=== PATIENT | female | born 1980 | race Two or more races ===

== ENCOUNTER 2016-11-30 18:41 | Emergency (ER) | payer OTHER ==
[2016-11-30] MEDS ORDERED: CYCLOBENZAPRINE HCL 10 MG TABLET PO ONE (19:48)
[2016-11-30] MEDS ORDERED: IBUPROFEN 800 MG TABLET PO ONE (19:48)
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
[2016-11-30 21:49] VITALS: BP 118/70
== END 2016-11-30 21:49 | disposition home or self-care (01) ==
LOC: ER 18:41
DX: S16.1XXA Strain of muscle, fascia and tendon at neck level, initial encounter (principal); S50.811A Abrasion of right forearm, initial encounter; S80.02XA Contusion of left knee, initial encounter; S49.91XA Unspecified injury of right shoulder and upper arm, initial encounter; M25.511 Pain in right shoulder; V87.7XXA Person injured in collision between other specified motor vehicles (traffic), initial encounter; M54.2 Cervicalgia
CPT/HCPCS: 99283